=== PATIENT | male | born 1960 | race Caucasian/White ===

== ENCOUNTER 2021-01-20 07:29 | Emergency (ER) | payer BC ==
[2021-01-20 08:08] VITALS: BMI 27.2
[2021-01-20] MEDS ORDERED: CASIRIVIMAB/IMDEVIMAB 10 ML in SODIUM CHLORIDE 100 ML IVPB ONE (08:46)
[2021-01-20 12:40] VITALS: BP 138/83; PULSE 78
[2021-01-20 12:41] VITALS: TEMP 99
[2021-01-20] MEDS ORDERED: ACETAMINOPHEN 325 MG TABLET (FP) PO ONE (13:04)
== END 2021-01-20 13:10 | disposition home or self-care (01) ==
LOC: JCOVINFU 07:29
DX: U07.1 COVID-19 (principal)
CPT/HCPCS: 99284-25; Q0240